=== PATIENT | male | born 1940 | race Caucasian/White ===

== ENCOUNTER 2025-01-25 05:27 | Inpatient (IN) | payer MEDICARE ==
[2025-01-19 14:13] LABS: BASOPHILS % 0.3 % (0.0-1.0); EOSINOPHILS % 1.4 % (0.0-6.0); LYMPHOCYTES % 8.2 % (18.0-39.1); MONOCYTES % 8.9 % (4.4-11.3); NEUTROPHILS % 80.8 % (38.7-80.0); RED CELL DISTRIBUTION WIDTH 14.7 % (11.7-14.4)
[2025-01-19 15:06] LABS: EST GLOMERULAR FILTRATION RATE 84.0 ML/MIN (>=60)
[~2025-01-25] VITALS: Ht 175.3 cm; Wt 104.3 kg
[2025-01-25] VITALS (7 sets, daily range): BP systolic 104–117; BP diastolic 52–65; PULSE 81–98; RESP 16–20; TEMP 97.4–99.1; O2SAT 18–100
[~2025-01-25 05:27] MED LIST: ATORVASTATIN CA20 MG PO; BENICAR20 MG PO; CLOPIDOGREL75 MG PO; DULOXETINE HCL20 MG PO; FARXIGA5 MG PO; FLOMAX0.4 MG PO; FUROSEMIDE40 MG PO; GLIPIZIDE5 MG PO; METFORMIN HCL500 M2 PO; NYSTATIN1 EAC8 TOP; ROPINIROLE HCL1 MG PO; TYLENOL325 MG PO; VERAPAMIL ER120 MG PO; VITAMIN C500 MG PO; VITAMIN D3 COM1 EACH PO; ZINC CHELATED50 M2 PO
[2025-01-25] MEDS: SODIUM CHLORIDE 0.9% 1000ML 1,000 ML ONE (06:21)
[2025-01-25] MEDS: GENTAMICIN 80MG/NS 100 ML 200 ML IV ONE (06:22)
[2025-01-25] MEDS: CEFTRIAXONE 1 GM VIAL ONE (06:22)
[2025-01-25] MEDS ORDERED: FENTANYL CITRATE/PF 100MCG/2 ML INJ ONE (07:19)
[2025-01-25] MEDS ORDERED: LIDOCAINE HCL 2% LOCAL INJ 5 ML SDV VIAL INJ ONE (07:19)
[2025-01-25] MEDS ORDERED: SEVOFLURANE INHAL SOLN 250 ML PEN BTL ONE (07:20)
[2025-01-25] MEDS ORDERED: PROPOFOL IV EMULSION 10 MG/ML 20 ML VIAL ONE (07:20)
[2025-01-25] MEDS ORDERED: ROCURONIUM BROMIDE 1 ML IV ONE (07:20)
[2025-01-25] MEDS ORDERED: ACETAMINOPHEN 1000 MG/100 ML 100 ML IV ONE (07:20)
[2025-01-25] MEDS ORDERED: ONDANSETRON HCL INJ 2MG/ML 2ML 2 MG/ML VIAL ONE (08:25)
[2025-01-25] MEDS ORDERED: DEXAMETHASONE SOD PHOS INJ 4 MG/ML SDV ONE (08:25)
[2025-01-25] MEDS ORDERED: SUGAMMADEX SODIUM 200 MG/2 ML VIAL IV ONE (09:17)
[2025-01-25] MEDS ORDERED: SODIUM CHLORIDE 0.9% 100 ML ONE (09:23)
[2025-01-25] MEDS ORDERED: PHENYLEPHRINE HCL 1% 10 MG/ML VIAL ONE (09:23)
[2025-01-25] MEDS ORDERED: ACETAMINOPHEN 1000 MG/100 ML IV PRN (09:45)
[2025-01-25] MEDS ORDERED: DIPHENHYDRAMINE HCL 25 MG CAP PO PRN ×2 (09:45→12:30)
[2025-01-25] MEDS ORDERED: PHENAZOPYRIDINE HCL 100 MG TAB PO PRN (09:45)
[2025-01-25] MEDS ORDERED: ACETAMINOPHEN/CODEINE 300MG - 30MG TAB PO PRN (09:45)
[2025-01-25] MEDS ORDERED: ONDANSETRON HCL INJ 2MG/ML 2ML 2 MG/ML VIAL IV PRN ×2 (09:45→12:30)
[2025-01-25] MEDS: ACETAMINOPHEN/CODEINE 300MG - 30MG TAB PO ONE (09:58)
[2025-01-25] MEDS: PHENAZOPYRIDINE HCL 100 MG TAB PO ONE (09:58)
[2025-01-25 10:06] LABS: BASOPHILS % 0.3 % (0.0-1.0); EOSINOPHILS % 2.0 % (0.0-6.0); LYMPHOCYTES % 10.1 % (18.0-39.1); MONOCYTES % 4.7 % (4.4-11.3); NEUTROPHILS % 82.4 % (38.7-80.0); RED CELL DISTRIBUTION WIDTH 14.9 % (11.7-14.4)
[2025-01-25 10:35] LABS: EST GLOMERULAR FILTRATION RATE 76.0 ML/MIN (>=60)
[2025-01-25] MEDS ORDERED: ALBUTEROL/IPRATROPIUM 3 ML NEB NEB PRN (12:30)
[2025-01-25] MEDS ORDERED: BENZONATATE 100 MG CAP PO PRN (12:30)
[2025-01-25] MEDS ORDERED: SIMETHICONE 80 MG CHEW PO PRN (12:30)
[2025-01-25] MEDS ORDERED: DOCUSATE SODIUM 100 MG CAP PO PRN (12:30)
[2025-01-25] MEDS ORDERED: POTASSIUM CHLORIDE 20 MEQ TAB CR PO PRN (12:30)
[2025-01-25] MEDS ORDERED: LIDOCAINE 4% PATCH TP PRN (12:30)
[2025-01-25] MEDS ORDERED: DEXTROSE 50% SYRINGE 50 ML IV PRN (12:30)
[2025-01-25] MEDS ORDERED: HYDRALAZINE HCL 20 MG/ML VIAL IV PRN (12:30)
[2025-01-25] MEDS ORDERED: MELATONIN 5 MG TABLET PO PRN (12:30)
[2025-01-25] MEDS ORDERED: ACETAMINOPHEN 325 MG TAB PO PRN (12:30)
[2025-01-25] MEDS: SODIUM CHLORIDE 0.9% 1000ML 1,000 ML IV SCH (12:37)
[2025-01-25] MEDS: SENNA-S TABLET PO SCH (16:01)
[2025-01-25] MEDS: ROPINIROLE HCL 1 MG TAB PO SCH (20:44)
[2025-01-25] MEDS: OLMESARTAN 20 MG TAB PO SCH (20:44)
[2025-01-25] MEDS: ATORVASTATIN 20 MG TAB PO SCH (20:44)
[2025-01-26] VITALS (12 sets, daily range): BP systolic 100–124; BP diastolic 56–72; PULSE 67–98; RESP 16–20; TEMP 97.8–98.4; O2SAT 95–100
[2025-01-26 05:31] LABS: PHOSPHORUS 3.4 MG/DL (2.3-4.7)
[2025-01-26 06:40] LABS: BASOPHILS % 0.1 % (0.0-1.0); EOSINOPHILS % 0.0 % (0.0-6.0); LYMPHOCYTES % 4.5 % (18.0-39.1); MONOCYTES % 8.3 % (4.4-11.3); NEUTROPHILS % 86.7 % (38.7-80.0); RED CELL DISTRIBUTION WIDTH 14.9 % (11.7-14.4)
[2025-01-26 06:58] LABS: EST GLOMERULAR FILTRATION RATE 86.0 ML/MIN (>=60)
[2025-01-26] MEDS: DULOXETINE HCL 20 MG DELAYED RELEASE PO SCH (08:16)
[2025-01-26] MEDS: VERAPAMIL HCL 120 MG TABSR PO SCH (08:16)
[2025-01-26] MEDS: GLIPIZIDE 5 MG TAB PO SCH (08:16)
[2025-01-26] MEDS: TAMSULOSIN HCL 0.4 MG CAP PO SCH (08:16)
[2025-01-26] MEDS: PANTOPRAZOLE SOD 40 MG TABEC PO SCH (08:16)
[2025-01-26] MEDS: DAPAGLIFLOZIN PROPANEDIOL 5 MG PO SCH (08:20)
[2025-01-27] VITALS (9 sets, daily range): BP systolic 110–145; BP diastolic 55–85; PULSE 77–109; RESP 18; TEMP 97.3–98.1; O2SAT 98–100
[2025-01-27 05:57] LABS: BASOPHILS % 0.2 % (0.0-1.0); EOSINOPHILS % 0.3 % (0.0-6.0); LYMPHOCYTES % 9.8 % (18.0-39.1); MONOCYTES % 11.9 % (4.4-11.3); NEUTROPHILS % 77.4 % (38.7-80.0); RED CELL DISTRIBUTION WIDTH 15.0 % (11.7-14.4)
[2025-01-27 06:25] LABS: EST GLOMERULAR FILTRATION RATE 84.0 ML/MIN (>=60)
[2025-01-28 04:33] VITALS: BP 133/76; PULSE 97; RESP 18; TEMP 97.5; O2SAT 99
[2025-01-28 06:43] VITALS: PULSE 74; RESP 20; O2SAT 96
[2025-01-28 08:19] LABS: BASOPHILS % 0.3 % (0.0-1.0); EOSINOPHILS % 1.6 % (0.0-6.0); LYMPHOCYTES % 9.7 % (18.0-39.1); MONOCYTES % 12.6 % (4.4-11.3); NEUTROPHILS % 75.4 % (38.7-80.0); RED CELL DISTRIBUTION WIDTH 14.8 % (11.7-14.4)
[2025-01-28 08:30] VITALS: BP 129/81; PULSE 88; RESP 18; TEMP 98.4; O2SAT 99
[2025-01-28 08:32] LABS: EST GLOMERULAR FILTRATION RATE 85.0 ML/MIN (>=60)
[2025-01-28 09:21] VITALS: BP 129/81; PULSE 88; RESP 18; TEMP 98.4; O2SAT 99
== END 2025-01-28 15:35 | disposition home or self-care (01) | DRG 713 ==
LOC: OR 05:27 → PACU V 09:33 → MED/SURG 10:45
PROVIDERS: ADMIT Internal Medicine; ATTEND Internal Medicine
PROC: 0T7D8ZZ Dilation of Urethra, Via Natural or Artificial Opening Endoscopic (ICD-10-PCS; 2025-01-25)
PROC: BT141ZZ Fluoroscopy of Kidneys, Ureters and Bladder using Low Osmolar Contrast (ICD-10-PCS; 2025-01-25)
PROC: 0V508ZZ Destruction of Prostate, Via Natural or Artificial Opening Endoscopic (ICD-10-PCS; principal; 2025-01-25 08:14)
DX: N40.1 Benign prostatic hyperplasia with lower urinary tract symptoms (principal); N13.8 Other obstructive and reflux uropathy; N35.919 Unspecified urethral stricture, male, unspecified site; N32.3 Diverticulum of bladder; E11.9 Type 2 diabetes mellitus without complications; I10 Essential (primary) hypertension; E78.5 Hyperlipidemia, unspecified; F41.8 Other specified anxiety disorders; G25.81 Restless legs syndrome; Z79.84 Long term (current) use of oral hypoglycemic drugs; Z83.3 Family history of diabetes mellitus; Z82.49 Family history of ischemic heart disease and other diseases of the circulatory system; Z79.02 Long term (current) use of antithrombotics/antiplatelets; Z87.440 Personal history of urinary (tract) infections
CPT/HCPCS: 36415; 51798; 71046; 74420; 80048; 82948; 83735; 84100; 85025; 88305; 93005; 94799; C1758; J0696; J1100; J1580; J2003; J2371; J2405; J2470; J7030; J7050